=== PATIENT | female | born 1995 | race Two or more races ===

== ENCOUNTER 2018-12-27 01:01 | Emergency (ER) | payer MEDICAID ==
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
[2018-12-27] MEDS ORDERED: NS 1,000 ML IV ONE (02:29)
[2018-12-27 02:34] LABS: PLATELET COUNT 268 10^3/uL (150-400)
[2018-12-27] MEDS ORDERED: ACETAMINOPHEN 500 MG TAB PO ONE (05:23)
[2018-12-27] MEDS ORDERED: CEPHALEXIN 500 MG CAP PO ONE (08:11)
[2018-12-27] MEDS ORDERED: CEPHALEXIN 500 MG CAP PO SCH (14:00)
[2018-12-27 19:19] VITALS: BP 141/79
--- NOTE | 2018-12-27 19:30 | ASMTTCLDSP ---
TLC Discharge Disposition Disposition: Answers: Discharge If Answers: Yes DISCHARGED: Patient/family given suicide hotline info & SAMHSA brochure? Disposition Notes: Notes: In consultation with [facility] ED physician, Goldy Lujan MD, and on-call psychiatrist, Duncan Sotelo MD, both concurred that pt does not appear to meet 27-65 criteria requiring psychiatric hospitalization as pt does not appear to be an imminent risk of harm to self/others/gravely disabled due to a mental illness condition. Pt stated commitment or ability to keep herself safe, denied thoughts of self harm or harm to others. Pt expressed a desire to f/u with [facility] and [facility]. Pt was offered transportation options to the homeless correction and educated on ability to see a Academic Services Coordinator at the [facility] to assist with directing her to community resources. Pt was also provided with referral to the [facility] if additional needs arise. Discharge Concerns/Recommendations: Notes: Pt was given local hotline information and SAMHSA brochure After an Attempt and encouraged to follow up with [facility] and [facility]. Was patient given the Answers: Not applicable Inpatient Behavioral Health Prohibited Belongings List while in the ED? Date Signed: 12/27/2018 07:30 PM Electronically Signed By:Alyssa Leal
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
== END 2018-12-27 19:47 | disposition home or self-care (01) ==
LOC: EEVIPCON 01:01
DX: R45.851 Suicidal ideations (principal); L03.114 Cellulitis of left upper limb; E86.9 Volume depletion, unspecified
CPT/HCPCS: 80305; G0480